=== PATIENT | male | born 1955 | race Asian ===

== ENCOUNTER → 2020-12-22 | Outpatient (CLI) | payer MEDICARE, MEDICAID ==
--- NOTE | 2020-12-22 15:12 | MRI ---
EXAM DESCRIPTION: Brain w/wo Contrast: Magnetic Resonance Imaging. CLINICAL HISTORY: 65 years Male [id number] COMPARISON: None. TECHNIQUE: Multiplanar, high-field MRI, multiple conventional sequences, without and with gadolinium IV contrast. No adverse reactions. Multiple axial diffusion sequences. FINDINGS: In the posterior and medial cortex of the left cerebral hemisphere, is hyperintense signal on the Beta 1000 diffusion sequence and less intense signal on the DWI Beta 0 sequence. Similar signal also noted in the left cerebellar tonsil. This signal is hyperintense on T2 weighted sequence, FLAIR weighted sequence, and T2*gradient sequence. Hypointense on T1 sequences with and without contrast with no enhancement. Minimal focal mass effect on the cerebellar folia. The abnormal cerebellar signal is unilateral. No diffusion abnormalities in the brainstem or cerebral hemispheres. Normal signal, and no mass effect, cerebral edema, or herniation, and normal contrast enhancement Bilateral scattered focal sites of hyperintense FLAIR and T2-weighted signal in the subcortical white matter at the level of the ventricles and supraventricular brain with relative sparing of the temporal lobes. Minimal. Ventricular white matter changes. No hemorrhage, no cerebral edema, no mass-effect. No abnormal contrast enhancement. Normal signal in the bilateral basal ganglia. Normal contrast enhancement. Cortical sulci, ventricles, and other CSF spaces, and the subdural spaces are unremarkable.. No effacement or displacement. No midline shift. No extra-axial hemorrhage. Normal contrast enhancement. Normal flow signal void in the major vessels of the [place], and the venous sinuses. IACs are symmetric bilaterally. No abnormal signal in the bilateral mastoid air cells. No mass effect in the bilateral Cerebellopontine angles. Normal contrast enhancement. Pituitary gland occupies most of the sella. Normal contrast enhancement. Base of the cerebellar tonsils is at the level of the foramen magnum. Mucoperiosteal thickening in the paranasal sinuses. No air-fluid levels. The bony calvarium is intact. IMPRESSION: 1. 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 No herniation and no midline shift. No diffusion restriction, signal abnormality, or mass effect in the brainstem. 2. Mild subcortical white matter signal changes in the cerebral hemispheres consistent with aging and cerebral microvascular disease. No mass effect, midline shift, hemorrhage, or cerebral edema. No abnormal contrast enhancement. 3. Chronic paranasal sinusitis. CRITICAL COMMUNICATION: The critical value was communicated directly by Dr. Tomas via phone call, with Dr. Joseph Montez, at approximately 1455 hours, on December 22, 2020 Electronically signed by: Kamron Tomas MD 12/22/2020 3:11 PM [facility]
== END ==
LOC: MRI 12-21 15:50
PROVIDERS: ATTEND Internal Medicine
DX: Z01.812 Encounter for preprocedural laboratory examination (principal); J32.9 Chronic sinusitis, unspecified; R90.82 White matter disease, unspecified; G93.9 Disorder of brain, unspecified; R42 Dizziness and giddiness